=== PATIENT | female | born 1975 | race Hispanic/Latino ===

== ENCOUNTER 2020-04-08 21:05 | Emergency (ER) | payer SELFPAY, OTHER ==
--- NOTE | 2020-04-08 21:35 | RAD ---
CHEST ONE VIEW: 04/08/20 HISTORY: Cough. COMPARISON: None. FINDINGS: The lungs are clear. No pneumothorax or effusion. Cardiac silhouette and mediastinal contours are wit hin normal limits. No acute osseous abnormality. IMPRESSION: No acute intrathoracic abnormality. POS: HOME
[2020-04-09 11:28] LABS: SARS-CoV-2 MS2 Positive; SARS-CoV-2 N Gene Negative; SARS-CoV-2 S Gene Negative; SARS-CoV-2 orf1ab Negative
== END 2020-04-08 22:02 | disposition home or self-care (01) ==
LOC: ERS 21:05
DX: J20.9 Acute bronchitis, unspecified (principal); Z20.828 Contact with and (suspected) exposure to other viral communicable diseases
CPT/HCPCS: 71045; 87635; U0003